=== PATIENT | female | born 1930 | race Caucasian/White ===

== ENCOUNTER 2019-11-26 09:50 | Emergency (ER) | payer SELFPAY ==
--- NOTE | 2019-11-26 09:56 | PDOC ---
Attending Attestation - Resident Resident Name: KadyYajaira - ED Attending Attestation I have performed the following: I have examined & evaluated the patient, The case was reviewed & discussed with the resident, I agree w/resident's findings & plan, Exceptions are as noted - HPI HPI: 11/26/19 10:42 89yo female with hx of pacer, cardiomyopathy, htn, hld, macular degeneration with 3 near syncope/dizzy spells this am. Per the granddaughter, pt with 3 dizzy episodes where she would fall to the right and had to be caught by her daughter. Pt did not hit her head. Pt states daily sánchez x weeks. No tinnitus, no ear pain. PMD has told them dizziness from vertigo in the past. Pt c/o feeling dizzy with change in position and moving her head. No blurred vision or change in vision. No rhinorrhea, sore throat, f/c, cough, cp/sob. C/o palpitations with the dizziness. No abd pain. No dysuria. No urinary complaints. NO LE swelling. No weakness/paresthesias. No recent illnesses. Pt with a [employer] Pacer placed at [facility] in 2016. Docs at [facility]. - Physicial Exam PE: 11/26/19 10:48 Gen: aaox3, nad heent: PERRL, EOMI, pupils 3mm reactive b/l, nares patent, tm intact without erythema/bulging/effusion, posterior pharynx clear, mmm neck: supple heart: +s1s2 reg lungs: cta b/l abd: soft, nt/nd +bs ext: R shoulder ttp with ROM, otherwise no c/c/e, FROM of all extremities neuro: cn ii-xii grossly intact, normal heel to burns, muscle strength 5/5 UE and LE, sensation intact diffusely skin: no rashes - Medical Decision Making 11/26/19 10:50 a/p: 89yo female with dizziness -feeling palpitations- will have pacer interrogated -has not seen her cards at [facility] in 4 years -vertiginous symptoms vs orthostatic hypotension vs posterior circ cva -will send labs, will send for head ct, cxr -will obtain ekg -ivf hydration after orthostatic vs -will monitor and reassess -pt is irish speaking- granddaughter at the bedside to help translate 11/26/19 11:08 cbc reviewed without acute findings cxr clear other than pacer R chest wall 11/26/19 11:26 pt is not orthostatic on vs, but when she stood up she felt dizzy 11/26/19 12:01 no acute findings on head ct, hold insular hypodensity seen pacer has been interrogated - no acute arrhythmias today to cause symptoms pt last ventricular rhythm was january 2018 pt with dizziness, off balance episodes today - will need obs for further eval 11/26/19 12:04 resident discussing results with the pt and her family 11/26/19 12:28 pt states she does not want to stay pt states she wants to go home and follow up with her docs at [facility] discussed risks of leaving without a complete workup and pt states she does not want to stay - states friends of hers "went into the hospital and never came out " and that she will not stay overnight discusses risks of NM, cva, with signing out AMA pt states she will sign out ama. 11/26/19 12:44 pt willing to stay for repeat trop then will sign out ama trop <0.03 11/26/19 13:46 pt has been ambulatory in the ER with a steady gait 11/26/19 14:54 repeat trop neg pt to sign ama paperwork iv removed Note: The patient insists on leaving the emergency dept and is signing out against medical advice. The patient understands the risks and complications that may result from the refusal of medical care and admission which includes and permanent disability. The patient has the mental capacity of understanding the risks of refusing care and is capable of making an informed decision. The patient was instructed to return to the emergency department should she change her mind regarding medical care or should her condition worsen. The patient signed the Against Medical Advice form. Heart Score/ECG Review - ECG Intrepretation Comment:: 11/26/19 10:52 a sensed, v paced at 64, no acute st/t wave findings
[2019-11-26 09:57] VITALS: BMI 20.9
--- NOTE | 2019-11-26 10:06 | PDOC ---
History of Present Illness - General Chief Complaint: Weakness Stated Complaint: WEAKNESS Time Seen by Provider: 11/26/19 09:52 - History of Present Illness Initial Comments: Farideh Ogden is an 89yo woman with a PMH of HTN, HLD, GERD, s/p pacemaker ([employer], placed at [facility]) who presents with dizziness and several near-falls today. She is [place]-speaking, and her adult granddaughter is at bedside to translate. The granddaughter reports that today the patient had three episodes where she started to fall over to the side while attempting to walk. The pt's daughter was at her side, and she was able to prevent her from falling to the ground. She did not have any actual falls, head injury, or LOC. Ms Ogden reports that she has had episodes of dizziness in the past, but today is more severe than normal. She describes the dizziness as feeling like the room is spinning. It worses when she turns her head, and she reports that she has to take her time standing up due to dizziness. The sensation makes her feel unsteady walking. She denies any ear pain, fullness, tinnitus, or hearing loss. She has not had any recent URI symptoms or fever. She denies any one- sided weakness or numbness, and her granddaughter states that the pt's face appears unchanged and voice sounds normal. She denies any nausea with the dizziness, though she does endorse frequent headaches over the past several weeks. The headaches occur in different locations around the head and are intermittent; she had not previously mentioned them to her family. Past History - Past Medical History Allergies/Adverse Reactions: Allergies Allergy/AdvReac Type Severity Reaction Status Date / Time No Known Allergies Allergy Verified 11/26/19 09:52 Home Medications: Ambulatory Orders Amlodipine Besylate 5 mg PO DAILY 11/26/19 Losartan Potassium 25 mg PO DAILY 11/26/19 Omeprazole 20 mg PO HS 11/26/19 Simvastatin 40 mg PO HS 11/26/19 Review of Systems - Review of Systems Comments:: General: No fevers, no chills, no weight or appetite change, no malaise HEENT: No changes in vision, no changes in hearing, no congestion, no sore throat CV: No chest pain, no palpitations, no LE edema Pulm: No SOB, no cough, no wheezing GI: No nausea or vomiting, no change in bowel habits, no melena : No frequency, no urgency, no dysuria Musc: +occasional upper back pain, no recent injury Skin: No rash, no lesions, no erythema Endo: No excessive thirst, no heat/cold intolerance Heme: No unusual bruising or bleeding, no swollen glands Neuro: No syncope, no numbness/tingling, no focal weakness. +Dizziness Vasc: No claudication Psych: No recent change in mood, no SI or HI *Physical Exam - Physical Exam General: Comfortable, no acute distress HEENT: Atraumatic, PERRL, EOMI, no nystagmus but difficulty obtaining exam. Dry lips. Voice normal Cards: RRR, no murmur appreciated Pulm: Comfortable on room air, clear to auscultation bilaterally Abd: Soft, nontender, nondistended : No CVA tenderness Ext: Atraumatic. No LE edema. ROM intact. Strength 5/5 and equal bilaterally Vasc: Extremities WWP. Skin: Normal color, no rashes or lesions Neuro: A&Ox3, CN grossly intact, normal speech, motor/sensory grossly intact and symmetric, no ataxia Psych: Mood appropriate to situation ED Treatment Course - LABORATORY CBC & Chemistry Diagram: 11/26/19 10:45 11/26/19 10:45 Medical Decision Making - Medical Decision Making 11/26/19 10:05 Farideh Ogden is an 89yo Canadian-speaking woman with a PMH of HTN, HLD, GERD, s/ p pacemaker ([employer], placed at [facility]) who presents with chronic intermittent dizziness that worsened significantly over the past two weeks as well as several near-falls today. She states she has room spinning that worsens when turning her head to the right or when standing. She denies any head injury , LOC, or associated ENT or GI symptoms but does endorse frequent headaches over the past several weeks. - Difficult to determine whether vertigo or lightheadedness from history. Occurs both with position changes and turning head - Most likely either orthostatic hypotension or positional vertigo. No fever, hearing loss, tinnitus suggesting labyrinthitis or meniere's. Given cardiac history and recent headache, ddx also includes arrhythmia, ACS, brain mass or other intracranial abnormality. No ataxia, no focal neuro abnormalites so unlikely CVA. - CBC, CMP, mag, UA, UCx, trop, EKG, CXR, CT head - Orthostatic vitals 11/26/19 11:21 - Labs reviewed. No concerning abnormalities appreciated. trop pending - UA negative - EKG w/ AV paced rhythm, HR 64, no concerning ST abnormalities - CXR with pacemaker visible. No infiltrate, normal mediastinum. - Not orthostatic. HR and BP both unchanged by position 11/26/19 12:09 - CT head w/ hypoattenuation in left insular area. May be contributing to the pt 's symtposm, possibly exacerbated by mild dehydration. - Recommending hospital admission for neurology evaluation, possible PT eval due to dizziness and falls. Discussed with granddaughter. Will discuss with the patient as well as her parents. 11/26/19 12:44 - Initial trop 0.03 - Following discussion between the patient and her family, she states that she does not wish to stay in the hospital. Reiterated reasons for staying and risks of leaving [place]. Pt continues to wish to leave [facility]. She is willing to stay for a repeat trop. - Second trop ordered 11/26/19 14:54 - Repeat trop also negative, 0.03 - Updated pt, asked again if she is willing to stay. Would still like to go home - Will sign AMA paperwork. Strongly advised to follow up with neurology and cardiology as soon as possible. Discussed with Dr Altaf Hillman PGY2 Discharge - Discharge Information Problems reviewed: Yes Clinical Impression/Diagnosis: Dizziness Condition: Fair - Follow up/Referral Referrals: [facility] [Provider Group] Kyler Coleman MD [Staff Physician] - - Patient Discharge Instructions Patient Printed Discharge Instructions: Combating Dizziness in Older Adults Additional Instructions: Discharge Instructions: You were seen in the emergency department for dizziness. Your initially blood tests did not show any abnormalities, and your EKG and chest xray were normal. Your pacemaker did not show any irregular heartbeats recently. Your head CT scan showed an area in the left front that was abnormal, but this is likely from something that occurred in the past. You declined hospital admission to complete your workup. Home Care and Follow Up: - Continue to take all of your regular home medications - Make sure you are staying well hydrated. Increase the amount of water that you drink throughout the day. - The cause of your dizziness was not determined in the ED. Your pacemaker did not show any recent events, but you could still have a cardiac (heart) cause of your dizziness. You may also have a neurological (brain) or ear problem causing your dizziness. You will need to follow up with cardiology and neurology as soon as possible. You have been given contact information for [facility] as well as a neurologist, Dr Coleman. Please call today or tomorrow to schedule the soonest possible follow up. You should be seen within the next 2-3 days. Seek immediate medical care for worsening symptoms, chest pain, difficulty breathing, any new neurological symptoms (one-sided weakness, numbness, changes in your speech, facial droop, etc), any falls or injury, or any other medical emergency. - Post Discharge Activity Work/Back to School Note: Back to Work
[2019-11-26 10:58] LABS: BASO % 0.7 % (0-2.0); EOS % 3.4 % (0-4.5); LYMPH % 18.3 % (8-40); MCHC 32.4 g/dl (32.0-36.0); MEAN CELL VOLUME 92.5 fl (80-96); MEAN PLT VOLUME 9.1 fl (7.5-11.1); MONO % 6.8 % (3.8-10.2); NEUT % 70.8 % (42.8-82.8); PLATELET COUNT 173 K/MM3 (134-434); RBC 4.33 M/mm3 (3.60-5.2); RDW 12.6 % (11.6-15.6); WHITE BLOOD COUNT 5.8 K/mm3 (4.0-10.8)
[2019-11-26 11:12] LABS: ALBUMIN 4.1 g/dl (3.4-5.0); BILIRUBIN,TOTAL 0.9 mg/dl (0.2-1); CALCIUM 8.8 mg/dl (8.5-10); CREATININE 0.6 mg/dl (0.55-1.3); MAGNESIUM 1.9 mg/dL (1.8-2.4); TOT PROT 7.1 g/dl (6.4-8.2)
[2019-11-26] MEDS ORDERED: SODIUM CHLORIDE 0.9% 500 ML INFUS.BAG IV ONE (11:28)
[2019-11-26] MEDS ORDERED: MECLIZINE HCL 25 MG TABLET (FP) PO ONE (11:28)
[2019-11-26 11:45] LABS: EPITHELIAL CELLS FEW /hpf
[2019-11-26 11:46] LABS: URINE MUCUS 1+
[2019-11-26] MEDS ORDERED: MECLIZINE HCL 25 MG TABLET (FP) ONE (11:51)
[2019-11-26 15:20] VITALS: BP 139/78; PULSE 70; TEMP 97.8
--- NOTE | 2019-11-27 09:27 | EKG ---
Test Reason : Blood Pressure : / mmHG Vent. Rate : 064 BPM Atrial Rate : 064 BPM P-R Int : 180 ms QRS Dur : 166 ms QT Int : 500 ms P-R-T Axes : 082 -36 094 degrees QTc Int : 515 ms AV SEQUENTIAL OR DUAL CHAMBER ELECTRONIC PACEMAKER ABNORMAL ECG NO PREVIOUS ECGS AVAILABLE Confirmed by Mart Padron MD ([id number]) on 11/27/2019 9:27:09 AM Referred By: DEBRA SLATER Confirmed By:Mart Padron MD
== END 2019-11-26 15:20 | disposition left against medical advice (07) ==
LOC: FER 09:50
PROC: 3E0337Z Introduction of Electrolytic and Water Balance Substance into Peripheral Vein, Percutaneous Approach (ICD-10-PCS; principal; 2019-11-26)
DX: R42 Dizziness and giddiness (principal); I10 Essential (primary) hypertension; E78.5 Hyperlipidemia, unspecified; K21.9 Gastro-esophageal reflux disease without esophagitis; Z95.0 Presence of cardiac pacemaker
CPT/HCPCS: 36415; 70450-TC; 71046-TC-FY; 80053; 81003; 81015; 83735; 84484; 85025; 87086; 93005; 99285-25